=== PATIENT | male | born 1965 | race African-American/Black ===

== ENCOUNTER 2024-11-26 21:08 | Emergency (ER) | payer MEDICAID, OTHER ==
[~2024-11-26] VITALS: Ht 177.8 cm; Wt 118.0 kg
[2024-11-26 21:43] LABS: Basophils # (auto) 0.1 10 ^3/uL (0-0.2); Eosinophils # (auto) 0.3 10 ^3/uL (0-0.8); Hematocrit 41.7 % (41.0-53.0); Hemoglobin 13.7 g/dL (13.5-17.5); Lymphocytes # (auto) 2.6 10 ^3/uL (0.4-5.4); Lymphocytes % (auto) 28.8 % (10.0-50.0); Mean Corpuscular Hemoglobin 31.7 pg (28.0-32.0); Mean Corpuscular Hgb Conc. 32.8 g/dL (32.0-36.0); Mean Corpuscular Volume 96.4 fL (80.0-100.0); Monocytes # (auto) 0.8 10 ^3/uL (0-1.3); Monocytes % (auto) 9.2 % (0.0-12.0); Neutrophils # (auto) 5.2 10 ^3/uL (1.6-8.6); Nucleated Red Blood Cells % 0.1 %; Platelet Count (auto) 273 10^3/uL (140-450); Red Blood Cells 4.33 10^6/uL (4.5-5.90); Red Cell Distribution Width 13.3 % (11.8-14.3); White Blood Cell 8.9 10^3/uL (4.4-10.8)
[2024-11-26] MEDS: IOHEXOL 350 MG/ML 100ML IJ ONE (21:45)
[2024-11-26 21:52] LABS: Potassium 3.9 mmol/L (3.5-5.1)
[2024-11-26 21:53] LABS: Anion Gap 9 (5-15); Calcium 9.4 mg/dL (8.7-10.4); Carbon Dioxide 26 mmol/L (20-31)
[2024-11-26] MEDS: SODIUM CHLORIDE 0.9% 1,000 ML IV ONE (21:53)
[2024-11-26] MEDS: MECLIZINE HCL 25 MG TAB PO ONE (21:53)
[2024-11-26 21:58] LABS: BUN/Creatinine Ratio 13.8 (10.0-20.0); Blood Urea Nitrogen 13 mg/dL (9-23)
[2024-11-26 22:04] LABS: Creatine Kinase IFCC 198 U/L (46-171); Glucose 128 mg/dL (74-106)
[2024-11-26 22:05] LABS: Chloride 111 mmol/L (98-107); Sodium 146 mmol/L (136-145)
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
[2024-11-26 22:18] VITALS: PULSE 97; RESP 18; O2SAT 97
--- NOTE | 2024-11-26 22:45 | DVH ---
CHEST RADIOGRAPH Indication: Shortness of breath, chest tightness Technique: Single frontal view of the chest was obtained Comparison: None FINDINGS: Lines and Tubes: None Lungs: Clear Pleura: No effusion. No pneumothorax. Cardiomediastinal contours: Unremarkable Bones: Unremarkable IMPRESSION: Clear lungs.
[2024-11-26 23:10] LABS: Urine Bacteria None Seen /hpf (None Seen)
--- NOTE | 2024-11-26 23:35 | DVH ---
EXAM: CT ANGIO HEAD/NECK HISTORY: Headache, dizziness, right hand weakness TECHNIQUE: Helical axial scans of the head and neck obtained during the arterial phase of intravenous contrast enhancement. Multiplanar reformats. Postprocessing MIP and 3-D images. One or more of the f ollowing radiation dose reduction techniques were used for this examination: automated exposure contr ol, adjustment of the mA and/or kV according to patient size, use of iterative reconstruction techniq ue. Determination of the degree of stenosis in the internal carotid arteries is obtained using measureme nts of distal internal carotid diameter (directly or indirectly) as the denominator for stenosis mikala urement. The method utilized is similar to that utilized in the [place] Symptomatic Carotid E ndarterectomy Trial (NASCET) method. If the degree of stenosis is greater than 30%, the actual percen tage stenosis is given in the body of the report COMPARISON: None FINDINGS: VISUALIZED AORTIC ARCH: The visualized aortic arch appears normal in caliber. The visualized subclavian arteries appear patent. RIGHT CAROTID SYSTEM CERVICAL: Common carotid artery: Patent Internal carotid artery: Patent External carotid artery: Patent LEFT CAROTID SYSTEM CERVICAL: Common carotid artery: Patent Internal carotid artery: Patent External carotid artery: Patent VERTEBROBASILAR SYSTEM: Right vertebral artery: Patent Left vertebral artery: Patent Basilar artery: Patent RIGHT INTRACRANIAL VASCULATURE Internal carotid artery: Patent Middle cerebral artery: Patent Anterior cerebral artery: Patent LEFT INTRACRANIAL VASCULATURE Internal carotid artery: Patent Middle cerebral artery: Patent Anterior cerebral artery: Patent IMPRESSION: No significant stenoses, occlusions or sizable aneurysmal dilatations identified involving the cervic al or major intracranial arterial vasculature.
[2024-11-26 23:55] LABS: Urine Blood Negative /uL (Negative); Urine Clarity Clear (Clear); Urine Color Light-Yellow (Yellow); Urine Mucus FEW (None Seen); Urine Protein, UAD Negative (Negative); Urine Squamous Epithelial Cell FEW /hpf (<5); Urine Urobilinogen Normal (Negative); Urine WBC < 1 /HPF (0-3); Urine pH 5.5 (5.0-9.0)
[2024-11-26 23:58] LABS: Urine Specific Gravity > 1.050 (1.001-1.035)
[2024-11-27] MEDS: ACETAMINOPHEN 325 MG TAB PO ONE (00:34)
--- NOTE | 2024-11-27 06:41 | ECG ---
[facility] Test Date: 2024-11-26 Test Time: 21:08:59 Pat Name: ENID WALTON Department: ED Room: Gender: M [employer] Operator: : 1965 Requested By: RONNIE DIMAS Order Number: [id number] Reading MD: Marito Barrera Measurements Intervals [place] Rate: 102 P: 65 [place]: 152 QRS: 74 QRSD: 105 T: -9 QT: 326 QTc: 425 Interpretive Statements Sinus tachycardia Borderline T abnormalities, inferior leads Electronically Signed On 11-29-2024 20:56:23 PDT by Marito Barrera Please click the below link to view image of tracing.
[2024-11-27 07:30] VITALS: PULSE 75; RESP 18; O2SAT 95
[2024-11-27 19:05] VITALS: BP 129/76; PULSE 80; RESP 18; TEMP 97.6; O2SAT 96
== END 2024-11-27 00:25 | disposition home or self-care (01) ==
LOC: EDBD 21:08 → ER 21:08
DX: R42 Dizziness and giddiness (principal); R51.9 Headache, unspecified; R07.89 Other chest pain; R06.02 Shortness of breath; I10 Essential (primary) hypertension; E11.9 Type 2 diabetes mellitus without complications
CPT/HCPCS: 36415; 70496; 70498; 71045; 80048; 81001; 82550; 82947; 84484; 85025; 93005; 96360; 99285; J7030; J8597; Q9967